=== PATIENT | female | born 1995 | race African-American/Black ===

== ENCOUNTER 2021-12-16 18:53 | Emergency (ER) | payer OTHER ==
[~2021-12-16] VITALS: Ht 152.4 cm; Wt 72.6 kg
[2021-12-16 19:50] LABS: PLATELET COUNT 254 K/uL (152-353)
[2021-12-16 20:07] LABS: POTASSIUM 3.5 mmol/L (3.6-5.2)
[2021-12-16 21:22] VITALS: BP 123/75; TEMP 98.2
== END 2021-12-16 21:22 | disposition home or self-care (01) ==
LOC: ED 18:53
PROVIDERS: Emergency Medicine
DX: E11.65 Type 2 diabetes mellitus with hyperglycemia (principal); Z79.4 Long term (current) use of insulin; R50.9 Fever, unspecified; N93.8 Other specified abnormal uterine and vaginal bleeding
CPT/HCPCS: 36415; 36600; 80053; 81000; 81025; 82805; 85027; 96360; 96372; 99284; J1815

== ENCOUNTER 2022-03-23 21:05 | Emergency (ER) | payer OTHER ==
[~2022-03-23] VITALS: Ht 152.4 cm; Wt 72.6 kg
[2022-03-23 21:57] LABS: POTASSIUM 3.7 mmol/L (3.6-5.2)
[2022-03-23 21:59] LABS: PLATELET COUNT 290 K/uL (152-353)
[2022-03-23 23:15] VITALS: BP 140/90; TEMP 98.2
== END 2022-03-23 23:15 | disposition home or self-care (01) ==
LOC: ED 21:05
PROVIDERS: Emergency Medicine Emergency Medical Services
DX: R11.2 Nausea with vomiting, unspecified (principal); R10.32 Left lower quadrant pain
CPT/HCPCS: 80048; 81000; 81002; 81025; 82150; 83690; 85027; 96360; 96361; 96374; 96375; 99284; J1885; J2405; J3490